=== PATIENT | female | born 2000 | race African-American/Black ===

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

== ENCOUNTER 2021-11-07 15:49 | Emergency (ER) | payer BC, MEDICAID, SELFPAY ==
--- NOTE | ~2021-11-07 | XR_ITS ---
EXAMINATION: XR chest 2V DATE: 11/07/2021 17:11 INDICATION: Cough and dizziness TECHNIQUE: PA and lateral views of the chest are obtained. COMPARISON: 07/27/2020 FINDINGS: The lungs are free of acute opacities. No pleural effusion or pneumothorax. The cardiomedia stinal silhouette is normal. The visualized bones and soft tissues are unremarkable. IMPRESSION: 1. No acute cardiopulmonary abnormality. Reviewed, dictated and finalized at location B.
[2021-11-07 15:52] VITALS: BP 135/91; PULSE 97; RESP 16; TEMP 36.8; O2SAT 100
--- NOTE | 2021-11-07 16:32 | ED.GENADULT ---
HPI - General Adult General Chief complaint: Unspecified Stated complaint: spitting up blood Time Seen by Provider: 11/07/21 15:53 History of Present Illness HPI narrative: 21-year-old female presented the emergency room for multiple complaints. Patient states earlier this week she was experiencing some nausea and vomiting. Also complaining of bilateral lower extremity discomfort as well as a sore throat postnasal drip sinus congestion and a productive cough. Denies fever. States her older sister has similar symptoms. Related Data Allergies Allergy/AdvReac Type Severity Reaction Status Date / Time No Known Allergies Allergy Verified 07/27/20 18:19 Review of Systems Review of Systems: CONSTITUTIONAL: Denies fever, chills, or sweats. EYES: Denies visual changes, redness, or discharge. ENT: Reports rhinorrhea, congestion, sore throat, or otalgia. CARDIOVASCULAR: Denies chest pain, palpitations, or edema. RESPIRATORY: Denies cough or dyspnea. GASTROINTESTINAL: Reports nausea and vomiting GENITOURINARY: Denies dysuria or hematuria. SKIN: Denies rash or itching. MUSCULOSKELETAL: Denies back pain, joint pain, or myalgia. NEUROLOGIC: Reports leg pain PSYCHIATRIC: Denies anxiety or depression. [facility] Social History Social History Tobacco type: e-cigarettes/vaping Substance use type: marijuana Gender identity (if verbalized by the patient): Female Exam Narrative: GENERAL: Well-appearing, well-nourished, no physical limitations, and in no acute distress. HEAD: Normocephalic, atraumatic. EYES: Conjunctivae normal, PERRLA and EOMI. ENT: External nose normal, Nares clear, no rhinorrhea or epistaxis. Mucous membranes moist. tonsillar hypertrophy without exudate. External ears normal, bilateral TMs normal bilaterally NECK: Supple. No adenopathy or masses. CHEST: Clear to auscultation. No respiratory distress. No wheezes rales or rhonchi. HEART: Regular rate and rhythm. No murmur heard. Normal peripheral pulses. ABDOMEN: Soft, nontender, nondistended, normal active bowel sounds. EXTREMITIES: Normal range of motion. No edema. No clubbing or cyanosis SKIN: Warm, dry, no rash. No noted wounds NEURO: No focal deficits. Alert and oriented x3. MAEW. CN's II-XI intact bilaterally, normal gait PSYCH: Cooperative. Normal mood and affect. Course Vital Signs Vital signs: Vital Signs Temperature 36.8 C 11/07/21 15:52 Pulse Rate 97 11/07/21 15:52 Respiratory Rate 16 11/07/21 15:52 Blood Pressure 135/91 H 11/07/21 15:52 Pulse Oximetry 100 11/07/21 15:52 Oxygen Delivery Room Air 11/07/21 15:52 Temperature 36.8 C 11/07/21 15:52 Pulse Rate 97 11/07/21 15:52 Respiratory Rate 16 11/07/21 15:52 Blood Pressure 135/91 H 11/07/21 15:52 Pulse Oximetry 100 11/07/21 15:52 Oxygen Delivery Room Air 11/07/21 15:52 Medical Decision Making Vital Signs Vital Signs: Vital Signs Temperature 36.8 C 11/07/21 15:52 Pulse Rate 97 11/07/21 15:52 Respiratory Rate 16 11/07/21 15:52 Blood Pressure 135/91 H 11/07/21 15:52 Pulse Oximetry 100 11/07/21 15:52 Oxygen Delivery Room Air 11/07/21 15:52 Temperature 36.8 C 11/07/21 15:52 Pulse Rate 97 11/07/21 15:52 Respiratory Rate 16 11/07/21 15:52 Blood Pressure 135/91 H 11/07/21 15:52 Pulse Oximetry 100 11/07/21 15:52 Oxygen Delivery Room Air 11/07/21 15:52 Lab Data Result diagrams: 11/07/21 16:49 11/07/21 16:49 Labs: Lab Results 11/07/21 11/07/21 11/07/21 Range/Units 16:49 16:49 16:49 WBC 4.5 (4.5-10.0) K/mm3 RBC 5.22 (4.2-5.4) M/mm3 Hgb 13.6 (12.0-15.0) g/dL Hct 43.2 (37.0-47.0) % MCV 82.8 (80-100) fl MCH 26.1 (26-34) pg MCHC 31.5 L (32-36) g/dl RDW 14.4 (11.5-14.5) % Plt Count 278 (150-375) k/mm3 MPV 10.6 H (7.4-10.4) fl Immature Gran % (Auto) 0.2 (0-0.5) % Bari
[2021-11-07] MEDS: DICYCLOMINE HCL INJ 20 MG/2 ML VIAL IM (16:50)
[2021-11-07] MEDS: ONDANSETRON INJ 4 MG/2 ML VIAL IV PUSH (16:50)
[2021-11-07] MEDS: SODIUM CHLORIDE 0.9% IV 1,000 ML 999 ML IV CONT (16:51)
[2021-11-07 16:56] LABS: Basophils Percent Auto 0.2 % (0.2-1.2); Hematocrit 43.2 % (37.0-47.0); Hemoglobin 13.6 g/dL (12.0-15.0); Immature Granulocyte Absolute 0.01 K/mm3 (0.00-0.031); Immature Granulocyte Percent A 0.2 % (0-0.5); Lymphocytes Absolute Auto 2.75 K/mm3 (0.9-3.2); Lymphocytes Percent Auto 61.7 % (18.3-44.2); Mean Corpuscular HGB Conc 31.5 g/dl (32-36); Mean Corpuscular Hemoglobin 26.1 pg (26-34); Mean Corpuscular Volume 82.8 fl (80-100); Mean Platelet Volume 10.6 fl (7.4-10.4); Monocytes Absolute Auto 0.6 K/mm3 (0.1-0.6); Monocytes Percent Auto 12.3 % (2.6-8.5); Neutrophils Absolute Auto 1.1 K/mm3 (1.3-6.7); Neutrophils Percent Auto 25.6 % (45.5-73.1); Platelet Count Result 278 k/mm3 (150-375); Red Blood Count 5.22 M/mm3 (4.2-5.4); Red Cell Distribution Width 14.4 % (11.5-14.5); White Blood Count 4.5 K/mm3 (4.5-10.0)
[2021-11-07 17:08] LABS: Alanine Aminotransferase 26 U/L (6-35); Albumin Level 4.4 g/dL (3.5-5.1); Alkaline Phosphatase 51 U/L (38-126); Anion Gap 14 mmol/L (8-16); Aspartate Amino Transferase 40 U/L (14-36); Bilirubin,Total 0.1 mg/dL (0.2-1.3); Blood Urea Nitrogen 14 mg/dL (7-17); Calcium 8.7 mg/dL (8.4-10.2); Carbon Dioxide 25 mmol/L (22-30); Chloride 99 mmol/L (98-107); Estimated CRCL calculation 122 ml/min; Estimated Glomerular Filt Rate > 60; Glucose 113 mg/dL (65-110); Potassium 3.5 mmol/L (3.4-5.0); Sodium 138 mmol/L (137-145)
[2021-11-07 17:20] LABS: Monoscreen Negative (Negative); Negative Monotest Control Negative (Negative); Positive Monotest Control Positive (Positive)
[2021-11-07 17:35] LABS: SARS-CoV-2 RNA PCR Positive
== END 2021-11-07 18:26 | disposition home or self-care (01) ==
PROVIDERS: Emergency Provider Nurse Practitioner Family; PCP Pediatrics
DX: U07.1 COVID-19 (principal); F17.290 Nicotine dependence, other tobacco product, uncomplicated; F12.90 Cannabis use, unspecified, uncomplicated; Z79.51 Long term (current) use of inhaled steroids
CPT/HCPCS: 36415; 71046; 80053; 85025; 86308; 87081; 87880; 96361; 96372; 96374; 99284; C9803; J0500; J2405; J7030; U0003; U0005